=== PATIENT | female | born 1960 | race Caucasian/White ===

== ENCOUNTER → 2019-10-24 12:02 | Outpatient (CLI) | payer OTHER, SELFPAY ==
--- NOTE | ~2019-10-24 | XR_ITS ---
EXAMINATION: XR chest 2V DATE: 10/24/2019 12:49 INDICATION: Cough and shortness of breath. TECHNIQUE: Frontal and lateral views of the chest were obtained. COMPARISON: Chest single view 08/31/2014 FINDINGS: Calcified pulmonary nodules and calcified hilar and mediastinal lymph nodes are consistent with old granulomatous disease. No pleural effusion or pneumothorax. The heart size is normal. There are multiple old healed left rib fractures. There is internal fixation of right proximal humerus. IMPRESSION: 1. No acute cardiopulmonary disease. Reviewed, dictated and finalized at location A.
== END ==
PROVIDERS: PCP Emergency Medicine; Visit Provider Emergency Medicine
DX: Z72.0 Tobacco use (principal)
CPT/HCPCS: 71046

== ENCOUNTER 2020-02-18 17:07 | Emergency (ER) | payer OTHER, SELFPAY ==
[2020-02-18 17:19] VITALS: BP 125/67; PULSE 85; RESP 18; TEMP 37.1; O2SAT 100
--- NOTE | 2020-02-18 17:39 | ED.ABDPAIN ---
HPI - Abdominal Pain General Chief Complaint: Abdominal Pain Stated Complaint: Stomach Ache Time Seen by Provider: 02/18/20 17:39 Source: patient Mode of arrival: ambulatory Limitations: no limitations History of Present Illness HPI narrative: 59-year-old female patient presents to the [facility] with complaints of abdominal pain with vomiting for the past 3 to 4 days. Patient states that she started vomiting bright red blood yesterday and today. Patient states she is also feeling very nauseated, constipated and bloated. Patient states that she has been having black tarry stools for several months though but attributes that to when she started her iron pills. Patient states that she does take 1-2 Aleve every 5 hours for the past several weeks. Denies any fevers, body aches or chills. Related Data Home Medications Medication Instructions Recorded Confirmed albuterol 2 mcg INHALATION Q6-12H 02/18/20 02/18/20 amlodipine [Norvasc] 10 mg PO DAILY 02/18/20 02/18/20 cholecalciferol (vitamin D3) 1 unit PO WEEKLY 02/18/20 02/18/20 ferrous sulfate 325 mg PO DAILY 02/18/20 02/18/20 hydrochlorothiazide 12.5 mg PO DAILY 02/18/20 02/18/20 losartan 50 mg PO DAILY 02/18/20 02/18/20 rosuvastatin [Crestor] 20 mg PO DAILY 02/18/20 02/18/20 sertraline [Zoloft] 75 mg PO DAILY 02/18/20 02/18/20 Allergies Allergy/AdvReac Type Severity Reaction Status Date / Time No Known Allergies Allergy Verified 02/18/20 17:36 Review of Systems Review of Systems: Narrative: CONSTITUTIONAL: Denies fever, chills, or sweats. EYES: Denies visual changes, redness, or discharge. ENT: Denies rhinorrhea, congestion, sore throat, or otalgia. CARDIOVASCULAR: Denies chest pain, palpitations, or edema. RESPIRATORY: Denies cough or dyspnea. GASTROINTESTINAL: Positive abdominal pain, nausea, positive bright red vomiting, denies diarrhea. Positive constipation. Positive black tarry stools GENITOURINARY: Denies dysuria or hematuria. SKIN: Denies rash or itching. MUSCULOSKELETAL: Denies back pain, joint pain, or myalgia. NEUROLOGIC: Denies headache, numbness, or weakness. PSYCHIATRIC: Denies anxiety or depression. [facility] Surgical History Surgical History (Updated 02/18/20 @ 18:03 by JACQUELINE Huber) History of X4 History of orthopedic surgery Facial reconstruction, right humerus Social History Social History Gender identity (if verbalized by the patient): Female Exam Narrative: Exam Narrative: GENERAL: Well-appearing, well-nourished, and in no acute distress. HEAD: Normocephalic, atraumatic. EYES: PERRLA and EOMI. ENT: Nares clear, no rhinorrhea or epistaxis. Mucous membranes moist. NECK: Supple. No lymphadenopathy CHEST: Clear to auscultation. No respiratory distress. HEART: Regular rate and rhythm. No murmur heard. Normal peripheral pulses. ABDOMEN: Soft, distended. No guarding, rebound tenderness, or rigid. No pulsatilla masses. Hypoactive bowel sounds present in all four quadrants. Tenderness noted to right upper quadrant right lower quadrant on palpation. No organomegaly. Negative Newton?s sign. No periumbicial tenderness. No Supra public tenderness or distension. Good femoral pulses bilaterally. No hernia noted. No scars or surface trauma. EXTREMITIES: Normal range of motion. No edema. SKIN: Warm, dry, no rash. NEURO: No focal deficits. Alert and oriented x3. Course Vital Signs Vital signs: Vital Signs Temperature 37.1 C 02/18/20 17:19 Pulse Rate 85 02/18/20 17:19 Respiratory Rate 18 02/18/20 17:19 Blood Pressure 125/67 02/18/20 17:19 Pulse Oximetry 100 02/18/20 17:19 Temperature 37.1 C 02/18/20 17:19 Pulse Rate 85 02/18/20 17:19 Respiratory Rate 18 02/18/20 17:19 Blood Pressure 125/67 02/18/20 17:19 Pulse Oximetry 100 02/18/20 17:19 Vital signs reviewed. Transfer Transfered to: Sergei Transfer rationale: Rule out GI bleed Accepting physician: Dr. Rodriguez Transfer comments: C
== END 2020-02-18 17:45 | disposition short-term general hospital (02) ==
LOC: EXPCOLL 17:10
PROVIDERS: Emergency Provider Nurse Practitioner Family; PCP Emergency Medicine
DX: K92.0 Hematemesis (principal); R10.9 Unspecified abdominal pain
CPT/HCPCS: 99212; G0463

== ENCOUNTER → 2020-02-18 18:08 | Emergency (ER) | payer OTHER, SELFPAY | END | disposition left against medical advice (07) | PROVIDERS: PCP Emergency Medicine | DX: Z53.21 Procedure and treatment not carried out due to patient leaving prior to being seen by health care provider (principal) | CPT/HCPCS: 99199 ==

== ENCOUNTER 2021-10-15 11:48 | Emergency (ER) | payer OTHER, SELFPAY ==
--- NOTE | ~2021-10-15 | XR_ITS ---
EXAMINATION: XR thoracic spine 3V DATE: 10/15/2021 12:36 INDICATION: Back pain. TECHNIQUE: 3 views of thoracic spine were obtained. COMPARISON: Chest 2 views 10/24/2019 FINDINGS: Calcified pulmonary nodules and calcified hilar and mediastinal lymph nodes are consistent with old granulomatous disease. There is mild chronic anterior wedging of a midthoracic vertebral bod y. There are 2 compression fractures in mid thoracic spine with worsening from 10/24/2019. There is mi ldly decreased disc height at multiple levels in mid thoracic spine. There are endplate osteophytes a t multiple levels. IMPRESSION: 1. Two age-indeterminate compression fractures in mid thoracic spine with worsening from 10/24/2019. 2. Mild thoracic spondylosis. Reviewed, dictated and finalized at location A. IMPRESSION: 1. Two age-indeterminate compression fractures in mid thoracic spine with worse clinton from 10/24/2019. 2. Mild thoracic spondylosis.
[2021-10-15 11:57] VITALS: BP 161/66; PULSE 83; RESP 18; TEMP 36.9; O2SAT 100
--- NOTE | 2021-10-15 12:17 | ED_ITS ---
HPI - Back Pain/Injury General Chief Complaint: Back Pain/Injury Stated Complaint: back pain Time Seen by Provider: 10/15/21 12:17 Source: patient Mode of arrival: ambulatory Limitations: no limitations Related Data Home Medications Medication Instructions Recorded Confirmed amlodipine 10 mg tablet (Norvasc) 10 mg PO DAILY 02/18/20 10/15/21 cholecalciferol (vitamin D3) 1,250 1 unit PO WEEKLY 02/18/20 10/15/21 mcg (50,000 unit) capsule ferrous sulfate 325 mg (65 mg 325 mg PO DAILY 02/18/20 10/15/21 iron) tablet hydrochlorothiazide 12.5 mg tablet 12.5 mg PO DAILY 02/18/20 10/15/21 losartan 50 mg tablet 50 mg PO DAILY 02/18/20 10/15/21 rosuvastatin 20 mg tablet (Crestor) 20 mg PO DAILY 02/18/20 10/15/21 sertraline 50 mg tablet (Zoloft) 75 mg PO DAILY 02/18/20 10/15/21 albuterol sulfate 90 mcg/actuation 90 inh inhalation DIRECTED 10/15/21 10/15/21 aerosol inhaler glycopyrrolate 9 mcg-formoterol 9 inh inhalation DIRECTED 10/15/21 10/15/21 4.8 mcg HFA aerosol inhaler (Bevespi Aerosphere) Allergies Allergy/AdvReac Type Severity Reaction Status Date / Time ibuprofen Allergy Mild Itching Verified 10/15/21 12:10 [facility] Surgical History Surgical History (Updated 02/18/20 @ 18:03 by JACQUELINE Huber) History of X4 History of orthopedic surgery Facial reconstruction, right humerus Social History Social History Gender identity (if verbalized by the patient): Female Course Vital Signs Vital signs: Vital Signs Temperature 36.9 C 10/15/21 11:57 Pulse Rate 83 10/15/21 11:57 Respiratory Rate 18 10/15/21 11:57 Blood Pressure 161/66 H 10/15/21 11:57 Pulse Oximetry 100 10/15/21 11:57 Oxygen Delivery Room Air 10/15/21 11:57 Temperature 36.9 C 10/15/21 11:57 Pulse Rate 83 10/15/21 11:57 Respiratory Rate 18 10/15/21 11:57 Blood Pressure 161/66 H 10/15/21 11:57 Pulse Oximetry 100 10/15/21 11:57 Oxygen Delivery Room Air 10/15/21 11:57 Discharge Plan Discharge Prescriptions: No Action losartan 50 mg Tablet 50 mg PO DAILY amlodipine [Norvasc] 10 mg Tablet 10 mg PO DAILY ferrous sulfate 325 mg (65 mg iron) Tablet 325 mg PO DAILY sertraline [Zoloft] 50 mg Tablet 75 mg PO DAILY rosuvastatin [Crestor] 20 mg Tablet 20 mg PO DAILY hydrochlorothiazide 12.5 mg Tablet 12.5 mg PO DAILY cholecalciferol (vitamin D3) 1,250 mcg (50,000 unit) capsule 1 unit PO WEEKLY albuterol sulfate 90 mcg/actuation HFA aerosol inhaler 90 inh INHALATION DIRECTED Bevespi Aerosphere 9-4.8 mcg HFA aerosol inhaler 9 inh INHALATION DIRECTED Follow-up/Referrals: Tyron Blanco MD [Primary Care Provider] -
--- NOTE | 2021-10-15 18:07 | ED.BACK ---
HPI - Back Pain/Injury General Chief Complaint: Back Pain/Injury Stated Complaint: back pain Time Seen by Provider: 10/15/21 12:17 Source: patient Mode of arrival: ambulatory Limitations: no limitations History of Present Illness HPI Narrative: 61-year-old female presents with complaint of pain to mid back since yesterday. States around 5 PM yesterday she was helping a friend push a car. Reports she suddenly felt a crack to mid upper back. Complaining of muscle spasms. Taking [id number] ibuprofen without relief. Patient is ambulatory with steady gait. Denies weakness, numbness tingling to extremities. No loss of bowel or bladder. All systems reviewed and negative except as noted above. Related Data Home Medications Medication Instructions Recorded Confirmed amlodipine 10 mg tablet (Norvasc) 10 mg PO DAILY 02/18/20 10/15/21 cholecalciferol (vitamin D3) 1,250 1 unit PO WEEKLY 02/18/20 10/15/21 mcg (50,000 unit) capsule ferrous sulfate 325 mg (65 mg 325 mg PO DAILY 02/18/20 10/15/21 iron) tablet hydrochlorothiazide 12.5 mg tablet 12.5 mg PO DAILY 02/18/20 10/15/21 losartan 50 mg tablet 50 mg PO DAILY 02/18/20 10/15/21 rosuvastatin 20 mg tablet (Crestor) 20 mg PO DAILY 02/18/20 10/15/21 sertraline 50 mg tablet (Zoloft) 75 mg PO DAILY 02/18/20 10/15/21 albuterol sulfate 90 mcg/actuation 90 inh inhalation DIRECTED 10/15/21 10/15/21 aerosol inhaler glycopyrrolate 9 mcg-formoterol 9 inh inhalation DIRECTED 10/15/21 10/15/21 4.8 mcg HFA aerosol inhaler (Bevespi Aerosphere) Allergies Allergy/AdvReac Type Severity Reaction Status Date / Time ibuprofen Allergy Mild Itching Verified 10/15/21 12:10 Review of Systems Review of Systems: CONSTITUTIONAL: Denies fever, chills, or sweats. EYES: Denies visual changes, redness, or discharge. ENT: Denies rhinorrhea, congestion, sore throat, or otalgia. CARDIOVASCULAR: Denies chest pain, palpitations, or edema. RESPIRATORY: Denies cough or dyspnea. GASTROINTESTINAL: Denies abdominal pain, nausea, vomiting, or diarrhea. GENITOURINARY: Denies dysuria or hematuria. SKIN: Denies rash or itching. MUSCULOSKELETAL: Reports mid upper back pain. Denies joint pain, or myalgia. NEUROLOGIC: Denies headache, numbness, or weakness. PSYCHIATRIC: Denies anxiety or depression. All other systems reviewed are negative, except as documented in HPI. [facility] Surgical History Surgical History (Updated 02/18/20 @ 18:03 by JACQUELINE Huber) History of X4 History of orthopedic surgery Facial reconstruction, right humerus Social History Social History Gender identity (if verbalized by the patient): Female Comments At time of signature, agree with nursing past medical, surgical, social and family history. There is no relevant family history pertinent to the presenting complaint. Exam Narrative: GENERAL: This is a well-nourished, well-developed patient, in no apparent distress. HEAD: normocephalic, atraumatic. EYES: PERRL. Sclera clear/white. Vision is grossly intact. EARS: External ears normal NOSE: External nose normal NECK: Neck supple, non-tender without lymphadenopathy, masses or thyromegaly. CARDIOVASCULAR: Regular rate and rhythm without murmurs, gallops, or rubs. RESPIRATORY: Clear to auscultation. Breath sounds equal bilaterally. No wheezes, rales, or rhonchi. SKIN: warm, Dry, intact with no suspicious lesions or rash, good texture and turgor. NEURO: awake, alert, and oriented to person, place and time. There were no obvious focal neurologic abnormalities. EXTREMITIES: No joint tenderness, effusion, or edema noted. BACK: Tenderness to thoracic spine, midline. No muscular tenderness. Decreased range of motion due to pain. Muscle spasm noted. Back/Spine/Pelvis: Back/spine/pelvis image: 1. Tender on palpation Course Course Level of Care: Express Care Visit Vital Signs Vital signs: Vital Signs Temperature 36.9 C 10/15/21 1
== END 2021-10-15 13:05 | disposition home or self-care (01) ==
PROVIDERS: Emergency Provider Nurse Practitioner Family; PCP Emergency Medicine
DX: S22.009A Unspecified fracture of unspecified thoracic vertebra, initial encounter for closed fracture (principal); X50.0XXA Overexertion from strenuous movement or load, initial encounter; E78.00 Pure hypercholesterolemia, unspecified; I10 Essential (primary) hypertension; J45.909 Unspecified asthma, uncomplicated; F32.A Depression, unspecified
CPT/HCPCS: 72072; 99213; G0463

== ENCOUNTER 2023-09-18 15:52 | Emergency (ER) | payer OTHER, SELFPAY ==
--- NOTE | ~2023-09-18 | XR_ITS ---
EXAMINATION: XR forearm RT 2V DATE: 09/18/2023 16:48 INDICATION: Right forearm injury. Fall. TECHNIQUE: 2 views of right forearm were obtained. COMPARISON: None. FINDINGS: Bone alignment is normal. No fracture. There is plate and screw fixation of humeral diaphys is. The elbow joint space is normal. No elbow joint effusion. IMPRESSION: 1. Normal right forearm. Reviewed, dictated and finalized at location A. IMPRESSION: 1. Normal right forearm.
--- NOTE | ~2023-09-18 | XR_ITS ---
EXAMINATION: XR hand RT 2V DATE: 09/18/2023 16:48 INDICATION: Right hand injury. Fall. TECHNIQUE: 2 views of right hand were obtained. COMPARISON: None. FINDINGS: Bone alignment is normal. No acute fracture. There is an old fracture deformity of base of fifth distal phalanx. 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 IMPRESSION: 1. No acute fracture. Reviewed, dictated and finalized at location A. IMPRESSION: 1. No acute fracture.
[2023-09-18 16:09] VITALS: BP 166/65; PULSE 84; RESP 14; TEMP 36.3; O2SAT 100
--- NOTE | 2023-09-18 16:30 | ED.UPPEXIN ---
HPI - Extremity Injury (Upper) General Chief Complaint: Extremity Injury, Upper Stated Complaint: right arm injury Time Seen by Provider: 09/18/23 17:22 Source: patient and RN notes reviewed Mode of arrival: ambulatory Limitations: no limitations History of Present Illness HPI narrative: 63-year-old female presents with concern for right arm injury. Reports she fell last night when she slipped on a grocery bag. She reports bruising, swelling to the wrist. She reports decreased gore inserter strength. She reports she took Aleve without relief. MD complaint: injury to: right and wrist Related Data Home Medications Medication Instructions Recorded Confirmed amlodipine 10 mg tablet (Norvasc) 10 mg PO DAILY 02/18/20 09/18/23 cholecalciferol (vitamin D3) 1,250 1 unit PO WEEKLY 02/18/20 09/18/23 mcg (50,000 unit) capsule ferrous sulfate 325 mg (65 mg 325 mg PO DAILY 02/18/20 09/18/23 iron) tablet hydrochlorothiazide 12.5 mg tablet 12.5 mg PO DAILY 02/18/20 09/18/23 losartan 50 mg tablet 50 mg PO DAILY 02/18/20 09/18/23 rosuvastatin 20 mg tablet (Crestor) 20 mg PO DAILY 02/18/20 09/18/23 sertraline 50 mg tablet (Zoloft) 100 mg PO DAILY 02/18/20 09/18/23 albuterol sulfate 90 mcg/actuation 90 inh inhalation DIRECTED 10/15/21 09/18/23 aerosol inhaler glycopyrrolate 9 mcg-formoterol 9 inh inhalation DIRECTED 10/15/21 09/18/23 4.8 mcg HFA aerosol inhaler (Bevespi Aerosphere) folic acid 1 mg tablet 1 mg PO DAILY 09/18/23 09/18/23 Allergies Allergy/AdvReac Type Severity Reaction Status Date / Time ibuprofen Allergy Mild Itching Verified 09/18/23 15:59 Review of Systems Review of Systems: CONSTITUTIONAL: Denies malaise, chills, sweats, or fever. SKIN: Denies rash or itching, open skin, laceration, abrasion, redness, warmth MUSCULOSKELETAL: Reports right wrist pain and swelling NEUROLOGIC: Denies numbness, weakness All systems reviewed & are unremarkable except as noted in HPI and below [facility] Surgical History Surgical History (Updated 02/18/20 @ 18:03 by JACQUELINE Huber) History of X4 History of orthopedic surgery Facial reconstruction, right humerus Social History Social History Gender identity (if verbalized by the patient): Female Comments At time of signature, agree with nursing past medical, surgical, social and family history. There is no relevant family history pertinent to the presenting complaint Exam Narrative: GENERAL: Well-appearing, well-nourished, and in no acute distress. HEAD: Normocephalic, atraumatic. EYES: PERRLA, conjunctivae clear NECK: Supple. CHEST: Speaks in full sentences. No respiratory distress. HEART: Regular rate and rhythm. Normal and equal peripheral pulses. EXTREMITIES: Right wrist, hand, digits have grossly normal sensation, grossly normal range of motion. Decreased gore inserter strength, decreased strength in the 5 digits of the right hand. Mild lateral edema without erythema or ecchymosis. Normal sensation with sensitivity to light touch and pain. Lateral wrist tenderness. No open wounds, no skin tenting, no devitalized tissue or atrophy, no trophic changes, no obvious deformity, alignment normal, nearby joints and structures intact. Distal pulses palpable and equal bilaterally, skin warm, dry, pink. Capillary refill less than 3 seconds. SKIN: Warm, dry, no rash. NEURO: Alert and oriented x3. PSYCH: Normal mood and affect Course Course Emergency Course: Patient is aware of diagnosis, understands and agrees to treatment plan. Anticipatory guidance given. Patient agrees to follow-up as directed and is aware of reasons to seek care at the emergency department. Portions of this record may have been created with voice recognition software Level of Care: Express Care Visit Vital Signs Vital signs: Vital Signs Temperature 97.3 F L 09/18/23 16:09 Pulse Rate 84 09/18/23 16:09 Respiratory Rate 14 09/18/23 16:09 Blood Pressure 166/65 H
== END 2023-09-18 17:38 | disposition home or self-care (01) ==
PROVIDERS: Emergency Provider Nurse Practitioner; PCP Emergency Medicine
DX: S63.501A Unspecified sprain of right wrist, initial encounter (principal); S66.911A Strain of unspecified muscle, fascia and tendon at wrist and hand level, right hand, initial encounter; W01.0XXA Fall on same level from slipping, tripping and stumbling without subsequent striking against object, initial encounter
CPT/HCPCS: 73090; 73120; 99213; G0463